=== PATIENT | male | born 1960 | race American Indian/Alaskan Native ===

== ENCOUNTER 2020-10-25 10:10 | Day surgery (SDC) | payer BC ==
[2020-10-25] MEDS ORDERED: LACTATED RINGERS 1,000 ML ONE ×2 (10:56→13:11)
[2020-10-25] MEDS ORDERED: LACTATED RINGERS 1,000 ML IV SCH (11:00)
[2020-10-25] MEDS ORDERED: propofoL 200 MG/20 ML VIAL IV ONE (11:39)
[2020-10-25] MEDS ORDERED: LIDOCAINE PF 100 MG/5 ML (CARDIAC SYRINGE) IV ONE (11:39)
[2020-10-25] MEDS ORDERED: fentaNYL 100 MCG/2 ML INJ ONE (11:40)
[2020-10-25] MEDS ORDERED: BUPIVACAINE/PF (0.25%) 2.5 MG/ML 30 ML VIAL INFILTRATI ONE (12:03)
[2020-10-25] MEDS ORDERED: LIDOCAINE (1%) 10 MG/1 ML VIAL 20 ML MDV ONE (12:03)
[2020-10-25] MEDS ORDERED: ceFAZolin/Water 2 GM/20 ML 2 GM/20 ML SYRINGE IV ONE (12:15)
[2020-10-25] MEDS ORDERED: ceFAZolin/Water 2 GM/20 ML 2 GM/20 ML SYRINGE IV NR (12:19)
[2020-10-25] MEDS ORDERED: ONDANSETRON 4 MG/2 ML INJ IV PRN (12:21)
[2020-10-25] MEDS ORDERED: HYDROmorphone 1 MG/1 ML INJ IV PRN ×2 (12:21)
--- NOTE | 2020-10-25 12:22 | Anesthesia Day of Surgery ---
Anesthesia Day of Surgery - Day of Surgery Patient Examined: Yes Patient H&P Reviewed: Yes Patient is NPO: Yes
--- NOTE | 2020-10-25 12:23 | Anesthesia Consultation ---
Anesthesia Consult and Med Hx Date of service: 10/25/20 - Airway Anesthetic Teeth Evaluation: Good ROM Head & Neck: Adequate Mental/Hyoid Distance: Adequate Mallampati Class: Class II Intubation Access Assessment: Good - Pre-Operative Health Status ASA Pre-Surgery Classification: ASA3 Proposed Anesthetic Plan: General - Pulmonary Hx Smoking: Yes (Former-two months ago) Hx Sleep Apnea: Yes (No CPAP) - Cardiovascular System Hx Hypertension: No - Central Nervous System Hx Psychiatric Problems: No - Hematic Hx Sickle Cell Disease: No - Other Systems Hx Alcohol Use: Yes (Occas) Hx Cancer: No Hx Obesity: Yes
[2020-10-25] MEDS ORDERED: KETOROLAC 30 MG/1 ML INJ ONE (12:24)
[2020-10-25] MEDS ORDERED: MIDAZOLAM 2 MG/2 ML INJ ONE (12:25)
[2020-10-25] MEDS ORDERED: SODIUM CHLORIDE 0.9% IRR 1,500 ML BOTTLE IR ONE (13:06)
[2020-10-25] MEDS ORDERED: ONDANSETRON 4 MG/2 ML INJ ONE (13:09)
[2020-10-25] MEDS ORDERED: dexAMETHasone 20 MG/5 ML VIAL ONE (13:09)
[2020-10-25] MEDS ORDERED: HYDROmorphone 1 MG/1 ML INJ ONE (13:28)
--- NOTE | 2020-10-25 13:45 | Post Operative Note ---
Date of procedure: 10/25/20 Pre-op diagnosis: scrotal mass L Post-op diagnosis: same Findings: huge mass Procedure: left spermatocelectomy Anesthesia: GETA Surgeon: AURA YBARRA Estimated blood loss: minimal Pathology: list (sac) Specimen disposition: to lab Condition: stable Disposition: PACU
--- NOTE | 2020-10-25 13:46 | Discharge Summary ---
Short Stay Discharge Plan Activity: other (no straining ) Weight Bearing Status: Full Weight Bearing Diet: low fat, low cholesterol, low salt Wound: open to air, other (ice packs inrr and x 24 hrs ) Special Instructions: other (ice) Follow up with: DR RITA [Other] - 7 Days AURA YBARRA MD [Staff Physician] - 10/30/20
[2020-10-25 15:56] VITALS: BP 134/79
--- NOTE | 2020-10-25 17:22 | Post Anesthesia Evaluation ---
- Post Anesthesia Evaluation Patient Participated: Yes Airway Patent: Yes Stable Respiratory Function: Yes Nausea/Vomiting: No Temp > 96.8F: Yes Pain Manageable: Yes Adequeate Hydration: Yes Anesthesia Complications: No Block Receding Appropriately: Not Applicable Patient on Ventilator: No
--- NOTE | 2020-10-25 17:24 | Operative Report ---
PREOPERATIVE DIAGNOSIS: Large left scrotal mass. 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 PROCEDURE: Left scrotal exploration, left spermatocelectomy. SURGEON: Dr. Louis ANESTHESIA: General. FINDINGS: This is a gentleman with large scrotal mass, intermittent severe pain, now presents for treatment. DESCRIPTION OF PROCEDURE: The patient was brought to the operating room and was placed in the operating table. Following induction of anesthesia, placed in the supine position, prepped and draped in the usual sterile fashion. An incision made over the scrotum, carried down through the scrotal fascia. The tunica was opened. The testis was normal. There was a large mass at least 6-7 cm above the testis, it was with cloudy fluid. We dissected the thickened ____ and any small vessels were tied or cauterized. We used 3-0 Vicryl ties. Hemostasis was excellent. We then ____, we dissected the mass off of the epididymis and the head of the superior aspect of the testis. This was suture ligated. The patient tolerated the procedure well. The mass was removed basically intact with lots of fluid within the spermatocele, was brought to recovery room after we closed the fascia and irrigated with saline. We closed the fascia with 3-0 chromic and skin with 2-0 chromic. We had placed a half-inch [place] in the dependent portion of the scrotum and secured that with a silk and brought to recovery in stable condition with minimal blood loss. [facility]# [id number] ROHIT/TERESA
== END 2020-10-25 15:25 | disposition home or self-care (01) ==
LOC: OR 10:10
PROVIDERS: ATTEND Urology
DX: N50.89 Other specified disorders of the male genital organs (principal); G47.30 Sleep apnea, unspecified; E66.9 Obesity, unspecified; Z72.89 Other problems related to lifestyle; Z87.891 Personal history of nicotine dependence; Z98.890 Other specified postprocedural states; Z68.33 Body mass index [BMI] 33.0-33.9, adult
CPT/HCPCS: 54840; 88304; J0690; J1100; J1170; J1885; J2001; J2250; J2405; J2704; J3010; J7120